=== PATIENT | female | born 1970 | race Caucasian/White ===

== ENCOUNTER 2022-11-22 15:58 | Emergency (ER) | payer MEDICAID ==
[~2022-11-22] VITALS: Ht 165.1 cm; Wt 72.7 kg
[~2022-11-22 15:58] MED LIST: ZOLP5TAB
[2022-11-22 16:17] LABS: Basophils # (auto) 0 10 ^3/uL (0-0.2); Basophils % (auto) 0.8 % (0.0-2.0); Eosinophils # (auto) 0.1 10 ^3/uL (0-0.8); Eosinophils % (auto) 2.1 % (0.0-7.0); Hematocrit 40.1 % (36.0-46.0); Hemoglobin 13.8 g/dL (12.2-16.2); Lymphocytes # (auto) 1.9 10 ^3/uL (0.4-5.4); Lymphocytes % (auto) 37.5 % (10.0-50.0); Mean Corpuscular Hemoglobin 30.3 pg (28.0-32.0); Mean Corpuscular Hgb Conc. 34.4 g/dL (32.0-36.0); Monocytes # (auto) 0.4 10 ^3/uL (0-1.3); Monocytes % (auto) 7.7 % (0.0-12.0); Neutrophils # (auto) 2.6 10 ^3/uL (1.6-8.6); Neutrophils % (auto) 51.9 % (37.0-80.0); Nucleated Red Blood Cells % 0.3 %; Red Blood Cells 4.56 10^6/uL (4.0-5.20); Red Cell Distribution Width 13.5 % (11.8-14.3)
[2022-11-22 16:37] LABS: Albumin 3.9 g/dL (3.4-5.0); BUN/Creatinine Ratio 13.4 (10.0-20.0); Calcium 9.5 mg/dL (8.5-10.1); Magnesium 2.4 mg/dL (1.6-2.6); Potassium 4.2 mmol/L (3.5-5.1)
[2022-11-22 16:40] LABS: Bilirubin, Total 0.3 mg/dL (0.2-1.0); Total Protein 7.4 g/dL (6.4-8.2)
[2022-11-22 17:11] LABS: INR 0.98 (0.9-1.15); Partial Thromboplastin Time 28.9 sec (24.6-33.4)
[2022-11-22] MEDS ORDERED: GABAPENTIN 300 MG CAP PO ONE (17:30)
[2022-11-22] MEDS ORDERED: GABA300C10 PO (22:11)
[2022-11-22] MEDS ORDERED: IBUP800T26 PO (22:11)
[2022-11-22 22:45] VITALS: BP 103/61
== END 2022-11-22 22:47 | disposition home or self-care (01) ==
LOC: ER 15:58
DX: M54.12 Radiculopathy, cervical region (principal); R06.02 Shortness of breath; Z79.899 Other long term (current) drug therapy
CPT/HCPCS: 36415; 71045; 72040; 80053; 83735; 83880; 84484; 85025; 85610; 85730; 93005

== ENCOUNTER 2023-02-15 16:27 | Inpatient (IN) | payer MEDICAID ==
[~2023-02-15] VITALS: Ht 165.1 cm; Wt 82.1 kg
[~2023-02-15 16:27] MED LIST changes: +GABA-1250 PO; +IBUP-1455 PO
[2023-02-15 17:06] LABS: Urine Bacteria FEW /hpf (None Seen); Urine Blood 3+ /uL (Negative); Urine Mucus FEW (None Seen); Urine Specific Gravity 1.015 (1.001-1.035); Urine WBC 1598 /hpf (0 - 5); Urine WBC Clumps PRESENT /hpf (None Seen)
[2023-02-15 17:09] LABS: Basophils # (auto) 0.1 10 ^3/uL (0-0.2); Basophils % (auto) 1.1 % (0.0-2.0); Eosinophils # (auto) 0.3 10 ^3/uL (0-0.8); Hematocrit 38.6 % (36.0-46.0); Hemoglobin 12.9 g/dL (12.2-16.2); Lymphocytes # (auto) 1.1 10 ^3/uL (0.4-5.4); Mean Corpuscular Hemoglobin 29.8 pg (28.0-32.0); Mean Corpuscular Hgb Conc. 33.5 g/dL (32.0-36.0); Mean Corpuscular Volume 89.1 fL (80.0-100.0); Monocytes # (auto) 0.5 10 ^3/uL (0-1.3); Monocytes % (auto) 6.5 % (0.0-12.0); Neutrophils # (auto) 6.5 10 ^3/uL (1.6-8.6); Neutrophils % (auto) 76.4 % (37.0-80.0); Nucleated Red Blood Cells % 0.1 %; Red Blood Cells 4.33 10^6/uL (4.0-5.20); Red Cell Distribution Width 13.9 % (11.8-14.3); White Blood Cell 8.5 10^3/uL (4.4-10.8)
[2023-02-15 17:26] LABS: Albumin 3.9 g/dL (3.4-5.0); Calcium 8.7 mg/dL (8.5-10.1); Potassium 3.5 mmol/L (3.5-5.1)
[2023-02-15 17:30] LABS: BUN/Creatinine Ratio 15.1 (10.0-20.0); Bilirubin, Total 0.5 mg/dL (0.2-1.0); Total Protein 7.5 g/dL (6.4-8.2)
[2023-02-15] MEDS ORDERED: ONDANSETRON HCL 4 MG/2 ML VIAL IV ONE (20:15)
[2023-02-15] MEDS ORDERED: SODIUM CHLORIDE 0.9% 2,250 ML IV ONE (20:15)
[2023-02-15] MEDS ORDERED: CEFTRIAXONE SODIUM 2 GM in D5W 5% 100 ML IV ONE (20:15)
[2023-02-15] MEDS ORDERED: MORPHINE SULFATE 4 MG/ML SYR/VIAL IV ONE (20:15)
[2023-02-15] MEDS ORDERED: MORPHINE SULFATE INJ 2 MG/ml SYRG IV PRN ×2 (20:45→21:15)
[2023-02-15] MEDS ORDERED: DOCUSATE SOD 100 MG CAP PO PRN (20:45)
[2023-02-15] MEDS ORDERED: ACETAMINOPHEN 325 MG TAB PO PRN (20:45)
[2023-02-15] MEDS ORDERED: NITROGLYCERIN 0.4 MG SL TAB SL PRN (21:15)
[2023-02-15] MEDS: SODIUM CHLOR 0.9% PF (SALINE LOCK) 10ML VIAL/SYR IV SCH (22:10)
[2023-02-15] MEDS ORDERED: cefTRIAXone 1GM/50ML D5W 100 ML IV ONE (22:18)
[2023-02-16] MEDS: HYDROcodone-ACET 5/325MG TAB PO PRN ×2 (05:59→23:44)
[2023-02-16 06:04] LABS: Basophils # (auto) 0 10 ^3/uL (0-0.2); Basophils % (auto) 0.4 % (0.0-2.0); Eosinophils # (auto) 0 10 ^3/uL (0-0.8); Eosinophils % (auto) 0.4 % (0.0-7.0); Hematocrit 37.1 % (36.0-46.0); Hemoglobin 12.8 g/dL (12.2-16.2); Lymphocytes # (auto) 0.6 10 ^3/uL (0.4-5.4); Mean Corpuscular Hemoglobin 31.4 pg (28.0-32.0); Mean Corpuscular Hgb Conc. 34.4 g/dL (32.0-36.0); Mean Corpuscular Volume 91.1 fL (80.0-100.0); Monocytes # (auto) 0.6 10 ^3/uL (0-1.3); Monocytes % (auto) 10.1 % (0.0-12.0); Neutrophils % (auto) 79.1 % (37.0-80.0); Nucleated Red Blood Cells % 0.1 %; Red Blood Cells 4.07 10^6/uL (4.0-5.20); Red Cell Distribution Width 13.9 % (11.8-14.3); White Blood Cell 6.4 10^3/uL (4.4-10.8)
[2023-02-16 06:11] LABS: Albumin 3.7 g/dL (3.4-5.0); Calcium 8.2 mg/dL (8.5-10.1); Potassium 3.4 mmol/L (3.5-5.1)
[2023-02-16 06:14] LABS: BUN/Creatinine Ratio 18.5 (10.0-20.0); Bilirubin, Total 0.5 mg/dL (0.2-1.0); Total Protein 6.7 g/dL (6.4-8.2)
[2023-02-16] MEDS: SODIUM CHLOR 0.9% PF (SALINE LOCK) 10ML VIAL/SYR IV SCH ×3 (07:59→22:01)
[2023-02-16] MEDS: cefTRIAXone 1GM/50ML D5W 50 ML IV SCH (09:56)
[2023-02-16] MEDS: ONDANSETRON HCL 4 MG/2 ML VIAL IV PRN (12:27)
[2023-02-16] MEDS ORDERED: TAMSULOSIN HYDROCHLORIDE 0.4 MG CAP PO ONE (12:30)
[2023-02-16] MEDS ORDERED: MANNITOL FTV 25% 12.5 GM/50 ML 50 ML IV ONE ×2 (12:30)
[2023-02-16 13:00] VITALS: BP 125/72
[2023-02-16] MEDS: SOD CHL 0.9%/ KCL 20MEQ 1,000 ML IV SCH ×2 (13:44→22:30)
[2023-02-16 16:41] VITALS: BP 115/72
[2023-02-16] MEDS: TAMSULOSIN HYDROCHLORIDE 0.4 MG CAP PO SCH (18:00)
[2023-02-16 20:09] VITALS: BP 120/75
[2023-02-16 22:00] VITALS: BP 120/75
[2023-02-17 05:00] VITALS: BP 110/68
[2023-02-17 05:48] LABS: Basophils # (auto) 0 10 ^3/uL (0-0.2); Basophils % (auto) 0.5 % (0.0-2.0); Eosinophils # (auto) 0.1 10 ^3/uL (0-0.8); Eosinophils % (auto) 2.7 % (0.0-7.0); Hematocrit 29.3 % (36.0-46.0); Hemoglobin 10.2 g/dL (12.2-16.2); Lymphocytes # (auto) 1.1 10 ^3/uL (0.4-5.4); Mean Corpuscular Hgb Conc. 34.8 g/dL (32.0-36.0); Mean Corpuscular Volume 89.1 fL (80.0-100.0); Monocytes # (auto) 0.4 10 ^3/uL (0-1.3); Monocytes % (auto) 9.5 % (0.0-12.0); Neutrophils # (auto) 2.2 10 ^3/uL (1.6-8.6); Neutrophils % (auto) 58.3 % (37.0-80.0); Nucleated Red Blood Cells % 0.1 %; Red Blood Cells 3.29 10^6/uL (4.0-5.20); Red Cell Distribution Width 13.7 % (11.8-14.3); White Blood Cell 3.8 10^3/uL (4.4-10.8)
[2023-02-17] MEDS: SODIUM CHLOR 0.9% PF (SALINE LOCK) 10ML VIAL/SYR IV SCH ×3 (06:04→22:00)
[2023-02-17 06:18] LABS: Calcium 6.8 mg/dL (8.5-10.1); Potassium 5.4 mmol/L (3.5-5.1)
[2023-02-17 06:20] LABS: BUN/Creatinine Ratio 18.6 (10.0-20.0)
[2023-02-17] MEDS: SOD CHL 0.9%/ KCL 20MEQ 1,000 ML IV SCH (08:30)
[2023-02-17 09:00] VITALS: BP 121/73
[2023-02-17] MEDS: cefTRIAXone 1GM/50ML D5W 50 ML IV SCH (09:04)
[2023-02-17] MEDS: HYDROcodone-ACET 5/325MG TAB PO PRN (09:05)
[2023-02-17] MEDS: SODIUM CHLORIDE 0.9% 1,000 ML IV SCH ×2 (10:45→20:45)
[2023-02-17] MEDS ORDERED: METOCLOPRAMIDE HCL 5MG/ml INJ 2ml VIAL IV ONE (10:45)
[2023-02-17] MEDS: ONDANSETRON HCL 4 MG/2 ML VIAL IV PRN ×2 (10:57→18:11)
[2023-02-17 13:00] VITALS: BP 145/77
[2023-02-17 17:00] VITALS: BP 142/83
[2023-02-17] MEDS ORDERED: LORazepam 2MG/ML-1ML VIAL IV PRN (17:00)
[2023-02-17] MEDS: TAMSULOSIN HYDROCHLORIDE 0.4 MG CAP PO SCH (18:00)
[2023-02-17 20:00] VITALS: BP 124/76
[2023-02-17 22:00] VITALS: BP 124/75
[2023-02-18 05:00] VITALS: BP 126/77
[2023-02-18 06:30] LABS: Albumin 2.9 g/dL (3.4-5.0); BUN/Creatinine Ratio 8.2 (10.0-20.0); Calcium 8.2 mg/dL (8.5-10.1); Potassium 3.5 mmol/L (3.5-5.1)
[2023-02-18 06:33] LABS: Bilirubin, Total 0.3 mg/dL (0.2-1.0); Total Protein 6.4 g/dL (6.4-8.2)
[2023-02-18 06:36] LABS: Basophils # (auto) 0 10 ^3/uL (0-0.2); Basophils % (auto) 0.8 % (0.0-2.0); Eosinophils # (auto) 0.1 10 ^3/uL (0-0.8); Hematocrit 34.6 % (36.0-46.0); Lymphocytes # (auto) 1.1 10 ^3/uL (0.4-5.4); Lymphocytes % (auto) 30.1 % (10.0-50.0); Mean Corpuscular Hemoglobin 30.4 pg (28.0-32.0); Mean Corpuscular Hgb Conc. 34.6 g/dL (32.0-36.0); Mean Corpuscular Volume 87.8 fL (80.0-100.0); Monocytes # (auto) 0.5 10 ^3/uL (0-1.3); Monocytes % (auto) 14.4 % (0.0-12.0); Neutrophils # (auto) 1.8 10 ^3/uL (1.6-8.6); Neutrophils % (auto) 51.7 % (37.0-80.0); Nucleated Red Blood Cells % 0.1 %; Red Blood Cells 3.94 10^6/uL (4.0-5.20); Red Cell Distribution Width 13.3 % (11.8-14.3); White Blood Cell 3.5 10^3/uL (4.4-10.8)
[2023-02-18 09:00] VITALS: BP 127/76
[2023-02-18] MEDS: cefTRIAXone 1GM/50ML D5W 50 ML IV SCH (10:47)
[2023-02-18] MEDS: SODIUM CHLORIDE 0.9% 1,000 ML IV SCH (10:49)
[2023-02-18] MEDS ORDERED: LEVO500T91 PO ×2 (11:56)
[2023-02-18 13:00] VITALS: BP 119/75
[2023-02-18] MEDS: SODIUM CHLOR 0.9% PF (SALINE LOCK) 10ML VIAL/SYR IV SCH ×2 (13:51→14:00)
[2023-02-18] MEDS ORDERED: NITR-87 PO (13:58)
[2023-02-18 17:00] VITALS: BP 119/75
== END 2023-02-18 17:26 | disposition home or self-care (01) | DRG 463 ==
LOC: ER 16:27 → OVERFLOW 21:05 → WEST WING 02-16 11:08 → TELE-WESTW 02-17 17:07
PROVIDERS: ADMIT Nurse Practitioner Family; ATTEND Internal Medicine
DX: N13.6 Pyonephrosis (principal); F41.9 Anxiety disorder, unspecified
CPT/HCPCS: 36415; 74176; 74177; 76775; 80048; 80053; 81001; 81025; 83690; 84132; 84484; 85025; 87086; 87088; 87186; 96365; 96366; 96375; 96376; G0378; J0696; J2405; J7060

== ENCOUNTER 2023-04-18 14:28 | Emergency (ER) | payer MEDICAID ==
[~2023-04-18] VITALS: Ht 167.6 cm; Wt 80.1 kg
[~2023-04-18 14:28] MED LIST changes: +NITR-87 PO
[2023-04-18 15:35] LABS: Basophils # (auto) 0 10 ^3/uL (0-0.2); Basophils % (auto) 0.8 % (0.0-2.0); Eosinophils # (auto) 0.1 10 ^3/uL (0-0.8); Eosinophils % (auto) 1.4 % (0.0-7.0); Hematocrit 43.9 % (36.0-46.0); Hemoglobin 14.8 g/dL (12.2-16.2); Lymphocytes # (auto) 1.5 10 ^3/uL (0.4-5.4); Lymphocytes % (auto) 26.5 % (10.0-50.0); Mean Corpuscular Hemoglobin 29.9 pg (28.0-32.0); Mean Corpuscular Hgb Conc. 33.8 g/dL (32.0-36.0); Mean Corpuscular Volume 88.3 fL (80.0-100.0); Monocytes # (auto) 0.4 10 ^3/uL (0-1.3); Monocytes % (auto) 7.4 % (0.0-12.0); Neutrophils # (auto) 3.6 10 ^3/uL (1.6-8.6); Neutrophils % (auto) 63.9 % (37.0-80.0); Nucleated Red Blood Cells % 0.1 %; Red Blood Cells 4.97 10^6/uL (4.0-5.20); Red Cell Distribution Width 14.5 % (11.8-14.3); White Blood Cell 5.7 10^3/uL (4.4-10.8)
[2023-04-18 15:48] VITALS: BP 102/64; PULSE 101; RESP 16; TEMP 97.8; O2SAT 96
[2023-04-18 16:05] LABS: Urine Bacteria NONE SEEN /hpf (None Seen); Urine Blood 1+ /uL (Negative); Urine Budding Yeast MANY /hpf (None Seen); Urine Clarity CLOUDY (Clear); Urine Color Yellow (Yellow); Urine Protein, UAD 1+ (Negative); Urine Specific Gravity 1.016 (1.001-1.035); Urine Urobilinogen Normal (Negative); Urine WBC 902 /hpf (0 - 5); Urine WBC Clumps PRESENT /hpf (None Seen); Urine pH 6.5 (5.0-8.0)
[2023-04-18 16:06] LABS: Albumin 4.1 g/dL (3.4-5.0); BUN/Creatinine Ratio 21.1 (10.0-20.0); Calcium 9.4 mg/dL (8.5-10.1); Potassium 3.9 mmol/L (3.5-5.1)
[2023-04-18 16:09] LABS: Bilirubin, Total 0.4 mg/dL (0.2-1.0); Total Protein 8.3 g/dL (6.4-8.2)
[2023-04-18] MEDS ORDERED: KETOROLAC TROMETH 60MG/2ML VIAL IM ONE (16:15)
[2023-04-18] MEDS ORDERED: cefTRIAXone SOD 1,000 MG VL IM ONE (16:15)
[2023-04-18] MEDS ORDERED: PHEN-922 PO (16:36)
[2023-04-18] MEDS ORDERED: CIPR-173 PO (16:36)
== END 2023-04-18 16:40 | disposition home or self-care (01) ==
LOC: ER 14:28
DX: N39.0 Urinary tract infection, site not specified (principal); M54.50 Low back pain, unspecified; Z87.442 Personal history of urinary calculi
CPT/HCPCS: 36415; 80053; 81001; 85025; 96372; 99284; J0696; J1885

== ENCOUNTER 2024-06-12 11:02 | Emergency (ER) | payer MEDICAID ==
[~2024-06-12] VITALS: Ht 165.1 cm; Wt 79.9 kg
[~2024-06-12 11:02] MED LIST changes: +CIPR-173 PO; +PHEN-922 PO
[2024-06-12 11:44] VITALS: BP 107/78; PULSE 74; RESP 18; TEMP 98.6; O2SAT 97
[2024-06-12] MEDS ORDERED: PRED20TA2 PO (13:04)
[2024-06-12] MEDS ORDERED: LIDO5DIS21 TOP (13:04)
[2024-06-12] MEDS ORDERED: MELO7.5T7 PO (13:04)
== END 2024-06-12 13:12 | disposition home or self-care (01) ==
LOC: ER 11:02
DX: M24.811 Other specific joint derangements of right shoulder, not elsewhere classified (principal); G89.29 Other chronic pain; Z79.1 Long term (current) use of non-steroidal anti-inflammatories (NSAID); Z79.52 Long term (current) use of systemic steroids; Z79.899 Other long term (current) drug therapy; Z87.440 Personal history of urinary (tract) infections; Z87.442 Personal history of urinary calculi
CPT/HCPCS: 73030